=== PATIENT | male | born 1955 | race Caucasian/White ===

== ENCOUNTER 2024-05-08 16:59 | Emergency (ER) | payer BC, MEDICAID ==
[~2024-05-08] VITALS: Ht 167.6 cm; Wt 54.5 kg
[2024-05-08 17:41] VITALS: BP 170/91; PULSE 55; O2SAT 99
[2024-05-08 19:43] VITALS: RESP 14
[2024-05-08] MEDS: ketorolac trometh 30MG/ML vial 30 MG/ML VIAL IM ONE (19:43)
[2024-05-08 21:16] VITALS: TEMP 98.6
== END 2024-05-08 21:21 | disposition home or self-care (01) ==
LOC: ER 17:00
DX: G89.29 Other chronic pain (principal); M54.89 Other dorsalgia
CPT/HCPCS: 36415; 80320; 96372; 99283; J1885